=== PATIENT | female | born 1970 | race Caucasian/White ===

== ENCOUNTER 2018-07-23 22:07 | Emergency (ER) | payer MEDICAID ==
[~2018-07-23] VITALS: Ht 162.6 cm; Wt 72.6 kg
[~2018-07-23 22:07] MED LIST: FLUO40CA8 PO; LORA1TAB PO; ZOLP10TA2 PO
[2018-07-24] MEDS ORDERED: HYDROCODONE/APAP 5-325MG TABLET PO ONE (00:15)
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
[2018-07-24] MEDS ORDERED: HYDROCODONE/APAP 5-325MG TABLET ONE (00:30)
--- NOTE | 2018-07-24 01:54 | NUR ---
Patient discharged to home in stable conditon. Written and verbal after care instructions given. Patient verbalizes understanding of instructions. WALKED OUT OF ER WITH NO DISTRESS NOTED
[2018-07-24 01:56] VITALS: BP 118/88
== END 2018-07-24 01:57 | disposition home or self-care (01) ==
LOC: ER 22:07
DX: S52.122A Displaced fracture of head of left radius, initial encounter for closed fracture (principal); F17.210 Nicotine dependence, cigarettes, uncomplicated; Z79.899 Other long term (current) drug therapy; V19.9XXA Pedal cyclist (driver) (passenger) injured in unspecified traffic accident, initial encounter; Y93.89 Activity, other specified; Y92.89 Other specified places as the place of occurrence of the external cause; Y99.8 Other external cause status
CPT/HCPCS: 73080; 73090; 73110; A4663